=== PATIENT | male | born 1950 | race Caucasian/White ===

== ENCOUNTER 2018-09-08 12:16 | Outpatient (CLI) | payer OTHER ==
[~2018-09-08 12:16] MED LIST: CIPRO100 MG PO; PYRIDIUM100 M1 PO; SURFAK240 M1 PO
== END 2018-09-08 12:19 | disposition home or self-care (01) ==
LOC: RAD 12:16
DX: D68.8 Other specified coagulation defects (principal); M25.80 Other specified joint disorders, unspecified joint